=== PATIENT | female | born 1945 | race Two or more races ===

== ENCOUNTER 2022-01-12 10:01 | Emergency (ER) | payer MEDICARE, OTHER ==
[~2022-01-12] VITALS: Ht 165.1 cm; Wt 68.9 kg
[2022-01-12] MEDS ORDERED: GUAIFENESIN/D-METHORPHAN HB 5 ML UDC ONE (10:28)
[2022-01-12] MEDS: GUAIFENESIN/D-METHORPHAN HB 5 ML UDC PO ONE (10:30)
--- NOTE | 2022-01-12 11:00 | NUR ---
BIBS C/O SOB, COUGH, HEADACHE, NAUSEA X 1 DAY. PLACED ON BED, AAOX4, BREATHING EVEN AND UNLABORED SATURATING AT 96%RA.
--- NOTE | 2022-01-12 11:20 | NUR ---
SWAB FOR COVID19 AND RAPID INFLUENZA SENT TO LAB
--- NOTE | 2022-01-12 11:49 | NUR ---
BLOOD DRAWN AND SENT TO LAB
--- NOTE | 2022-01-12 11:51 | NUR ---
GOT BED 328-2
[2022-01-12 11:54] LABS: BASOPHILS % (AUTO) 0.4 % (0.0-2.0); EOSINOPHILS % (AUTO) 0.1 % (0.0-6.0); HEMATOCRIT 34 % (33-45); HEMOGLOBIN 11.3 g/dL (11.5-14.8); LYMPHOCYTES # (AUTO) 0.3 K/uL (0.8-4.8); LYMPHOCYTES % (AUTO) 5.9 % (20.0-44.0); MEAN CORPUSCULAR HGB CONC 34 g/dl (31.0-36.0); MEAN CORPUSCULAR VOLUME 88 fL (82-100); MONOCYTES # (AUTO) 0.3 K/uL (0.1-1.30); MONOCYTES % (AUTO) 7.6 % (2.0-12.0); NEUTROPHILS # (AUTO) 3.7 K/uL (1.8-8.9); PLATELET COUNT (AUTO) 154 K/uL (150-450); RED BLOOD CELL COUNT(AUTO) 3.79 MIL/uL (4.0-5.2); WHITE BLOOD COUNT (AUTO) 4.3 K/uL (4.3-11.0)
[2022-01-12] MEDS ORDERED: COUGH SYRUP (12:18)
--- NOTE | 2022-01-12 12:38 | NUR ---
[facility] in [place] - 01/12/22 at 1239 by IDA CONSENT FOR BLOOD TRANSFUSION SIGNED BY PATIENT
[2022-01-12 12:39] LABS: CALCIUM, SERUM 8.3 mg/dL (8.5-10.1); CARBON DIOXIDE 28 mmol/L (21-32); CHLORIDE 100 mmol/L (98-107); CREATININE 0.8 mg/dL (0.6-1.3); GLUCOSE 184 mg/dL (74-106); POTASSIUM 4.2 mmol/L (3.5-5.1); SODIUM SERUM 136 mmol/L (136-145); UREA NITROGEN, BLOOD 12 mg/dL (7-18)
[2022-01-12] MEDS ORDERED: BENZ-13 PO (13:01)
[2022-01-12] MEDS ORDERED: KETO10TA2 PO (13:01)
[2022-01-12] MEDS ORDERED: GUAI1TBM19 PO (13:01)
[2022-01-12] MEDS ORDERED: LEVO750T46 PO (13:01)
--- NOTE | 2022-01-12 13:41 | NUR ---
IV removed. Catheter intact and site benign. Pressure and 4x4 applied to site. No bleeding noted.Patient discharged to home in stable condition. Written and verbal after care instructions given. Patient and Daughter verbalizes understanding of instruction.
[2022-01-12 13:44] VITALS: BP 135/60
== END 2022-01-12 13:41 | disposition home or self-care (01) ==
LOC: ER 10:10
DX: J10.1 Influenza due to other identified influenza virus with other respiratory manifestations (principal); Z20.822 Contact with and (suspected) exposure to COVID-19; R91.8 Other nonspecific abnormal finding of lung field; I44.4 Left anterior fascicular block
CPT/HCPCS: 36415; 71045-TC; 80048-TC; 83880; 84484-TC; 85025-TC; 87081-TC; C9803